=== PATIENT | female | born 1950 | race Caucasian/White ===

== ENCOUNTER → 2017-10-05 | Outpatient (CLI) | payer BC ==
[~2017-10-05] MED LIST: ASPCH81X PO; ATEN-174 PO; LTN/10 PO; MULTTAB58 PO; SIMV20TA5 PO
--- NOTE | 2017-10-06 13:44 | MAMMOGRAPHY REPORT ---
BILATERAL DIGITAL SCREENING MAMMOGRAM TOMOSYNTHESIS WITH CAD: 10/05/2017 CLINICAL HISTORY: Routine screening. Patient has no complaints. TECHNIQUE: Breast tomosynthesis in addition to standard 2D mammography was performed. Current study was also evaluated with a Computer Aided Detection (CAD) system. COMPARISON: Comparison is made to exams dated: 09/29/2016 mammogram, 09/27/2015 mammogram, 4 mammogram, 09/25/2013 mammogram, 09/22/2012 mammogram, and 09/21/2011 mammogram - [facility]. BREAST COMPOSITION: There are scattered areas of fibroglandular density in both breasts. FINDINGS: There is expected architectural distortion and surgical clips in the upper outer quadrant of the right breast, at the site of prior lumpectomy. There are a few scattered benign coarse and pu nctate microcalcifications in the breasts. No new suspicious mass, architectural distortion or cluste r of microcalcifications is seen. IMPRESSION: ACR BI-RADS CATEGORY 2: BENIGN There is no mammographic evidence of malignancy. A 1 year screening mammogram is recommended. The pa tient will receive written notification of the results. Approximately 10% of breast cancers are not detected with mammography. A negative mammographic report should not delay biopsy if a clinically suggestive mass is present. Kelsey Hernandez M.D. ay/:10/05/2017 16:23:06 Demo Coordinator: Christin SANDOVAL(Anali)(Velia)(BD), [facility] letter sent: Normal 1/2 BI-RADS Code: ACR BI-RADS Category 2: Benign
== END | disposition home or self-care (01) ==
LOC: C.MAMM 10:13
PROVIDERS: ATTEND Family Medicine
DX: Z12.31 Encounter for screening mammogram for malignant neoplasm of breast (principal); Z98.82 Breast implant status